=== PATIENT | male | born 1985 | race Caucasian/White ===

== ENCOUNTER 2018-01-15 09:51 | Emergency (ER) | payer OTHER ==
[~2018-01-15] VITALS: Ht 188 cm; Wt 88.6 kg
[2018-01-15] MEDS ORDERED: NAPR250T4 PO (09:56)
[2018-01-15] MEDS ORDERED: ACETAMINOPHEN 500 MG TABLET PO ONE (11:15)
[2018-01-15] MEDS ORDERED: MORPHINE SULFATE 4 MG/ML SYRINGE IVP ONE (11:15)
[2018-01-15] MEDS ORDERED: CYCLOBENZAPRINE HCL 10 MG TABLET PO ONE (11:15)
[2018-01-15 12:21] VITALS: BP 144/84
== END 2018-01-15 12:30 | disposition home or self-care (01) ==
LOC: EMS 09:52
DX: M62.838 Other muscle spasm (principal); M54.2 Cervicalgia
CPT/HCPCS: 96374; 99284; J2270

== ENCOUNTER 2019-05-30 15:26 | Emergency (ER) | payer OTHER ==
[~2019-05-30] VITALS: Ht 188 cm; Wt 95.5 kg
[~2019-05-30 15:26] MED LIST: NAPR250T4 PO
[2019-05-30] MEDS ORDERED: HYDROCODONE/ACETAMINOPHEN 5-325 MG TABLET PO ONE (16:45)
[2019-05-30 19:17] VITALS: BP 132/76
== END 2019-05-30 19:19 | disposition home or self-care (01) ==
LOC: EMS 15:26
DX: S39.012A Strain of muscle, fascia and tendon of lower back, initial encounter (principal); M51.26 Other intervertebral disc displacement, lumbar region; X50.9XXA Other and unspecified overexertion or strenuous movements or postures, initial encounter; Y93.89 Activity, other specified; Y92.89 Other specified places as the place of occurrence of the external cause; Y99.8 Other external cause status
CPT/HCPCS: 72148